=== PATIENT | male | born 1975 | race African-American/Black ===

== ENCOUNTER → 2017-10-17 | Day surgery (SDC) | payer OTHER ==
[~2017-10-17] VITALS: Ht 177.8 cm; Wt 75.3 kg
[~2017-10-17] MED LIST: COUMADIN2 M1 PO; COUMADIN6 M2 PO; LIPITOR10 MG PO; NATURE'S BLEND F1 MG PO; NEXIUM40 MG PO; NOVOLOG10 ML SC; REGLAN10 M1 PO; VITAMIN B150 MG PO
[2017-10-17 07:50] LABS: CREATININE 5.52 mg/dL (0.70-1.30); POTASSIUM 3.3 mmol/L (3.5-5.1)
[2017-10-17 09:03] VITALS: BP 139/85
[2017-10-17 09:47] VITALS: BP 114/71
[2017-10-17 10:00] VITALS: BP 136/79
[2017-10-17 10:17] VITALS: BP 134/84
== END | disposition home or self-care (01) ==
LOC: SDC 10-07 11:45
DX: R63.3 Feeding difficulties (principal); Z86.73 Personal history of transient ischemic attack (TIA), and cerebral infarction without residual deficits; I25.10 Atherosclerotic heart disease of native coronary artery without angina pectoris; E11.9 Type 2 diabetes mellitus without complications; Z83.3 Family history of diabetes mellitus; Z88.0 Allergy status to penicillin; Z88.8 Allergy status to other drugs, medicaments and biological substances